=== PATIENT | male | born 1965 | race Caucasian/White ===

== ENCOUNTER 2017-09-11 01:03 | Emergency (ER) | payer OTHER ==
--- NOTE | 2017-09-11 01:06 | ER Report ---
History and Physical Time Seen By MD: 01:06 HPI/ROS CHIEF COMPLAINT: Forehead laceration HISTORY OF PRESENT ILLNESS: 52-year-old male presents ambulatory to the ER complaining of forehead laceration. Patient was stepping over a small fence when he lost his balance and fell striking his head. He denies LOC or neck pain. Patient states his tetanus status is up-to-date. Patient reports no alcohol. He states he's been sober for several months. REVIEW OF SYSTEMS: Respiratory: No cough, no dyspnea. Cardiovascular: No chest pain, no palpitations. Gastrointestinal: No vomiting, no abdominal pain. Musculoskeletal: No back pain. Allergies: Coded Allergies: No Known Drug Allergies (Unverified , 09/11/17) Reviewed Nurses Notes: Yes Old Medical Records Reviewed: Yes Constitutional Vital Sign - Last 24 Hours 09/11/17 01:07 Temp 98.0 Pulse 77 Resp 16 B/P (MAP) 149/99 Pulse Ox 92 O2 Delivery Room Air Physical Exam General Appearance: The patient is alert, has no immediate need for airway protection and no current signs of toxicity. Vital signs stable, afebrile, pulse ox normal, palpation of the head and neck reveal no tenderness or trauma. There is a large stellate laceration above the left eyebrow, facial bones intact on palpation HEENT: Pupils equal and round no injection. TMs normal, oropharynx without redness or dental trauma Respiratory: Chest is non tender, lungs are clear to auscultation. No chest wall tenderness Cardiac: regular rate and rhythm Gastrointestinal: Abdomen is soft and non tender, no masses, bowel sounds normal. Musculoskeletal: Neck: Neck is supple and non tender. No tenderness in the midline Extremities have full range of motion and are non tender. No evidence of trauma Skin: No rashes or lesions. DIFFERENTIAL DIAGNOSIS: After history and physical exam differential diagnosis was considered for head injury including but not limited to concussion, skull fracture, intraparenchymal contusion, subarachnoid, subdural and epidural hematoma. Facial bone fracture, Medical Decision Making ED Course/Re-evaluation ED Course Patient was admitted to an examination room. H&P was done. The differential diagnoses was considered. Patient with for head trauma. He has no other focal symptoms of concussion or injury. His neck is nontender. Patient denies other injuries. His tetanus status is up-to-date. Procedure: Laceration repair. Verbal consent was obtained from the patient. The 4.3 cm omni-directional laceration on the left eyebrow was anesthetized in the usual fashion. The wound was scrubbed, draped and explored to its base with a gloved finger. There were no deep structures involved. The wound was repaired with 5-0 Prolene 7 sutures. The wound repair was simple. The procedure was performed by myself. Wound care was discussed, suture removal will be in 5 days. Decision to Disposition Date: Sep 11, 2017 Decision to Disposition Time: 01:21 Depart Departure Latest Vital Signs Vital Signs Date Time Temp Pulse Resp B/P (MAP) Pulse Ox O2 Delivery O2 Flow Rate FiO2 09/11/17 01:07 98.0 77 16 149/99 92 Room Air Impression: Primary Impression: Forehead laceration Condition: Improved Disposition: HOME OR SELF-CARE Patient Instructions: Facial Laceration (ED) Additional Instructions: Perform daily wound care, gently cleanse the wound with baby shampoo or peroxide and water mixed 50-50, gently massage the wound with Q-tips all scabbing, then cover with a thin layer of antibiotic ointment Have your stitches removed in 4-5 days Continue to protect the area from sun for the next 6 months. Do not allow it to get sunburned cover with a hat or sunscreen Problem Qualifiers Primary Impression: Forehead laceration Encounter type: initial encounter Qualified Codes: S01.81XA - Laceration without foreign body of other part of head, initial encounter ENRIKE MEHTA DO Sep 11, 2017 01:06
[2017-09-11 01:07] VITALS: BP 149/99
[2017-09-11] MEDS ORDERED: DIPHTH/TETANUS/ACEL. PERTUSSIS IM ONLY ONE (01:15)
== END 2017-09-11 01:50 | disposition home or self-care (01) ==
LOC: ER 01:39
DX: S01.81XA Laceration without foreign body of other part of head, initial encounter (principal)
CPT/HCPCS: 90471; 90715; 99283